=== PATIENT | male | born 1970 | race Asian ===

== ENCOUNTER 2023-10-03 13:19 | Emergency (ER) | payer BC ==
[~2023-10-03] VITALS: Ht 167.6 cm; Wt 77.1 kg
[2023-10-03 13:20] VITALS: BP_SYST 147; PULSE 63; RESP 18; TEMP 97.6; O2SAT 98
[2023-10-03 13:40] LABS: BASOPHILS % (AUTO) 0.5 % (0.0-2.0); EOSINOPHILS # (AUTO) 0.1 K/uL (0.0-0.4); EOSINOPHILS % (AUTO) 1.4 % (0.0-4.0); HEMATOCRIT 48.3 % (36-54); HEMOGLOBIN 16.6 g/dL (14.0-18.0); LYMPHOCYTES # (AUTO) 2.8 K/uL (1.0-5.5); LYMPHOCYTES % (AUTO) 37.1 % (20.5-51.5); MEAN CORPUSCULAR HEMOGLOBIN 31 pg (27-31); MEAN CORPUSCULAR HGB CONC 35 % (32-36); MEAN CORPUSCULAR VOLUME 89 fL (79.0-98.0); MONOCYTES # (AUTO) 0.5 K/uL (0.0-1.0); MONOCYTES % (AUTO) 6.6 % (1.7-9.3); NEUTROPHILS # (AUTO) 4.1 K/uL (1.8-7.7); NEUTROPHILS % (AUTO) 54.4 % (40.0-70.0); PLATELET COUNT (AUTO) 156 K/uL (130-430); RED BLOOD CELL COUNT(AUTO) 5.41 MIL/uL (4.2-6.2); RED CELL DISTRIBUTION WIDTH 14.7 % (9.0-15.0); WHITE BLOOD COUNT (AUTO) 7.5 K/uL (4.8-10.8)
[2023-10-03] MEDS: MORPHINE 2 MG/ML INJ. SYRINGE IVP ONE (13:40)
[2023-10-03] MEDS ORDERED: iohexoL 350 mgI/mL, 100 ML INFUS..BTL IV ONE (13:43)
[2023-10-03 13:53] LABS: ANION GAP 5 (5-15); CALCIUM 8.7 mg/dL (8.4-11.0); CARBON DIOXIDE 28 mmol/L (23-29); CHLORIDE 109 mmol/L (98-107); CREATININE 0.98 mg/dL (0.55-1.30); GFR AFRICAN AMERICAN 103 mL/min (>90); GLUCOSE 94 mg/dL (74-106); POTASSIUM 4.3 mmol/L (3.5-5.1); SODIUM SERUM 142 mmol/L (136-145); UREA NITROGEN, BLOOD 16 mg/dL (8-21)
[2023-10-03 13:55] LABS: GFR NON AFRICAN-AMERICAN 85 mL/min (>90)
[2023-10-03 13:56] LABS: INR 1.1 (0.80-1.20); PROTHROMBIN TIME 11.2 SECS (9.5-12.5)
[2023-10-03 14:00] LABS: ALANINE AMINOTRANSFERASE 24 U/L (12-78); ALBUMIN 3.6 g/dL (3.4-4.8); ASPARTATE AMINOTRANSFERASE 15 U/L (10-37); BILIRUBIN,DIRECT 0.1 mg/dL (0.0-0.3); TOTAL BILIRUBIN 0.3 mg/dL (0.0-1.0); TOTAL PROTEIN, SERUM 6.6 g/dL (6.4-8.3)
[2023-10-03 14:47] LABS: FREE T4 (FREE THYROXINE) 0.7 ng/dL (0.6-1.6); THYROID STIMULATING HORMONE 2.14 uIu/mL (0.34-4.82)
[2023-10-03] MEDS: KETOROLAC TROMETHAMINE 30 MG VIAL IVP ONE (14:47)
[2023-10-03] MEDS ORDERED: DICL50TA9 PO (17:00)
[2023-10-03] MEDS ORDERED: DICL20GE TP (17:00)
[2023-10-03 17:14] VITALS: BP_SYST 129; PULSE 67; RESP 18; TEMP 97.9; O2SAT 98
[2023-10-03] MEDS ORDERED: DICL50TA7 PO (19:02)
== END 2023-10-03 17:13 | disposition home or self-care (01) ==
LOC: SED 13:19
DX: S29.012A Strain of muscle and tendon of back wall of thorax, initial encounter (principal); R07.89 Other chest pain; X58.XXXA Exposure to other specified factors, initial encounter; Y93.89 Activity, other specified; Y92.89 Other specified places as the place of occurrence of the external cause; Y99.8 Other external cause status
CPT/HCPCS: 99285; 96374; 71275; 71045; 96375; 80061; 80076; 80048; 83880; 84439; 84443; 85025; 85379; 85610; 85730; 84484; 36415; 93005; 73030; Q9967; J1885; J2270